=== PATIENT | male | born 1965 | race Caucasian/White ===

== ENCOUNTER 2016-07-09 17:12 | Emergency (ER) | payer OTHER ==
[~2016-07-09] VITALS: Ht 182.9 cm; Wt 172.4 kg
[~2016-07-09 17:12] MED LIST: ATIVAN0.5 MG PO; DICLOFENAC SODI75 M2 PO; FLOMAX(MONOGRA0.4 MG PO; FLOMAX0.4 M1 PO; MOTRIN 600 MG600 MG PO; PERCOCET 325 MG1 TAB PO; PERCOCET 5-3251 EACH PO; ZOFRAN ODT4 MG PO; ZOFRAN4 M2 PO
[2016-07-09 17:40] LABS: ABSOLUTE BASOPHIL COUNT 0 /CUMM (0.0-0.2); ABSOLUTE EOSINOPHIL COUNT 0.3 /CUMM (0.0-0.7); ABSOLUTE LYMPH COUNT 2.1 /CUMM (1.2-3.4); ABSOLUTE MONOCYTE COUNT 0.7 /CUMM (0.10-0.60); BASOPHIL % 0.5 % (0.0-2.0); GRANULOCYTE % 56.1 % (42.2-75.2); HEMATOCRIT 48.1 % (42-52); MEAN CORPUSCULAR HGB 30.8 PG (27.0-31.0); MEAN CORPUSCULAR HGB CONC 33.6 G/DL (33.0-37.0); MEAN CORPUSCULAR VOLUME 91.5 FL (80.0-94.0); MEAN PLATELET VOLUME 8.3 FL (7.4-10.4); PLATELET COUNT 197 /CUMM (130-400); RBC DISTRIBUTION WIDTH 13.9 % (11.5-14.5); RED BLOOD CELL CT 5.25 /CUMM (4.70-6.10); WHITE BLOOD CELL COUNT 7.1 /CUMM (4.8-10.8)
--- NOTE | 2016-07-09 17:47 | ED GI/GU/ABDOMINAL COMPLAINT ---
History of Present Illness General Chief Complaint: Male Genitourinary Problems Stated Complaint: RT KIDNEY PAIN Source: patient Exam Limitations: no limitations Vital Signs & Intake/Output Vital Signs & Intake/Output Vital Signs Date Time Temp Pulse Resp B/P Pulse O2 O2 Flow FiO2 Ox Delivery Rate 07/09 2006 79 22 150/79 98 Room Air 07/09 1717 98.1 82 18 142/90 98 Room Air Allergies Coded Allergies: hydromorphone (From DILAUDID) (Intermediate, BLOOD VESSELS IN EYE BLOW 10/26/15) Reconcile Medications Ibuprofen 800 MG TABLET 1 TAB PO TID pain Lorazepam 1 MG TABLET 1 TAB PO PRN ANXIETY (Reported) Oxycodone HCl/Acetaminophen (Percocet 5-325 MG Tablet) 5 MG-325 MG TABLET 1-2 TAB PO Q6P PRN pain Tamsulosin HCl (Flomax) 0.4 MG CAP.ER.24H 1 CAP PO DAILY kidney stone Triage Note: HISTORY OF KIDNEY STONES, 1 HOUR AGO STARTED WITH R SIDE FLANK PAIN, FEBRUARY HAD 8MM STONE REMOVED Triage Nurses Notes Reviewed? yes Onset: Abrupt Duration: hour(s):, constant, continues in ED Timing: recent history Activities at Onset: none No Modifying Factors: none HPI: 50-year-old male comes into emergency room with sudden onset right-sided flank pain that wraps around to his groin. Pain is moderate to severe. Continuous. History of kidney stone. Feels similar to previous kidney stone. Patient reports she was having some increased frequency with urination yesterday. Denies any other associated symptoms. (RADU CHENG) Past History Travel History Traveled to [place] past 21 day No Medical History Any Pertinent Medical History? see below for history Neurological: NONE EENT: EAR INFECTIONS Cardiovascular: NONE Respiratory: NONE Gastrointestinal: NONE Hepatic: NONE Renal: KIDNEY STONES Musculoskeletal: disk herniation Psychiatric: anxiety, depression Endocrine: NONE Blood Disorders: NONE Cancer(s): NONE ROAD CONTRACTOR/Reproductive: NONE Surgical History Surgical History: lithotripsy and ureteral stent Psychosocial History What is your primary language Slovenian Tobacco Use: Never used ETOH Use: denies use Illicit Drug Use: denies illicit drug use Family History Hx Contributory? No (RADU CHENG) Review of Systems Review of Systems Constitutional: Reports: no symptoms. EENTM: Reports: no symptoms. Respiratory: Reports: no symptoms. Cardiovascular: Reports: no symptoms. GI: Reports: no symptoms. Genitourinary: Reports: see HPI. Musculoskeletal: Reports: see HPI. Skin: Reports: no symptoms. Neurological/Psychological: Reports: no symptoms. Hematologic/Endocrine: Reports: no symptoms. Immunologic/Allergic: Reports: no symptoms. All Other Systems: Reviewed and Negative (RADU CHENG) Physical Exam Physical Exam General Appearance: well developed/nourished, no apparent distress, alert Head: atraumatic, normal appearance Eyes: Bilateral: normal appearance, EOMI. Ears, Nose, Throat, Mouth: hearing grossly normal, moist mucous membrane Neck: normal inspection Respiratory: normal breath sounds, no respiratory distress Cardiovascular: regular rate/rhythm Gastrointestinal: soft, tenderness (rlq) Back: normal inspection, normal range of motion Extremities: normal range of motion Neurologic/Psych: awake, alert, oriented x 3, normal gait, normal mood/affect Skin: intact, normal color Core Measures ACS in differential dx? No Severe Sepsis Present: No Septic Shock Present: No (RADU CHENG) Progress Differential Diagnosis: appendicitis, bowel obstruction, cholecystitis, diverticulitis, gastritis, hepatitis, hernia, pancreatitis, peptic ulcer, PUD/ GERD, pyelonephritis, SBO, ureterolithiasis, urinary retention, urethritis, UTI/ pyelo Plan of Care: Orders Procedure Date/time Status URINALYSIS 07/10 1727 Complete COMPREHENSIVE METABOLIC PANEL 07/10 1727 Complete CBC WITHOUT DIFFERENTIAL 07/10 1727 Complete Current Medications Sig/Yamilex Start time Last Medication Dose Stop Time Status Admin Hydromorphone HCl 1 MG ONCE ONE 07/09 1744 CAN (Dilaudid) 07/09 174 Laboratory Tests 07/09/161944: Urine Color YEL, Urine Clarity CLEAR, Urine pH 6.0, Ur Specific [place] 1.020, Urine Protein NEG, Urine Ketones NEG, Urine Nitrite NEG, Urine Bilirubin NEG, Urine Urobilinogen 0.2, Ur Leukocyte Esterase NEG, Ur Microscopic SEDIMENT EXAMINED, Urine RBC 3-5, Urine WBC RARE, Ur Epithelial Cells RARE, Urine Bacteria RARE H, Hyaline Casts RARE H, Urine Mucus FEW, Urine Hemoglobin SMALL H, Urine Glucose NEG 07/09/16 1730: Anion Gap 12, Estimated GFR 46 L, BUN/Creatinine Ratio 15.6, Glucose 94, Calcium 9.6, Total Bilirubin 0.6, AST 30, ALT 55, Alkaline Phosphatase 83, Total Protein 7.4, Albumin 4.2, Globulin 3.2, Albumin/Globulin Ratio 1.3, CBC w Diff NO MAN DIFF REQ, RBC 5.25, MCV 91.5, MCH 30.8, RDW 13.9, MPV 8.3, Gran % 56.1, Lymphocytes % 30.0, Monocytes % 9.4 H, Eosinophils % 4.0, Basophils % 0.5, Absolute Granulocytes 4.0, Absolute Lymphocytes 2.1, Absolute Monocytes 0.7 H, Absolute Eosinophils 0.3, Absolute Basophils 0, PUBS MCHC 33.6 Diagnostic Imaging: Viewed by Me: CT Scan. Discussed w/RAD: CT Scan. Radiology Impression: XAM TYPE: CAT - CT ABD & PELVIS W/O IV CONTRAS EXAMINATION : CT ABDOMEN AND PELVIS WITHOUT CONTRAST CLINICAL INFORMATION: Sharp right flank pain. Rule out kidney stone. COMPARISON: CT abdomen and pelvis of 10/26/2015, , 08/09/2006. TECHNIQUE: Multidetector volumetric imaging was performed from the superior aspect of the liver through the pubic symphysis. Sagittal and coronal reformatted images were obtained on the technologist's workstation. DLP: 1237.10 mGy-cm. FINDINGS: LUNG BASES: A 3 mm subpleural nodule at the left lung base posteriorly (series 3 image 52) is stable since previous CT of 2006. The lung bases are otherwise clear. LIVER, GALLBLADDER, AND BILIARY TREE: The liver is normal in size and shape. There is patchy low-attenuation in the liver parenchyma suggesting underlying patchy hepatic steatosis with focal areas of sparing. No focal liver lesion is noted within the limits of noncontrast study. No biliary ductal dilatation. The gallbladder is moderately contracted, however there is no evidence of radiopaque stones, wall thickening or obvious pericholecystic inflammatory changes. PANCREAS: Unremarkable. SPLEEN: Unremarkable. ADRENAL GLANDS: Unremarkable. KIDNEYS AND URETERS: The kidneys are normal in size, shape and attenuation. There are right renal peripelvic cysts, appears somewhat smaller compared to previous studies. There is a 0.4 cm calculus at the right ureteral pelvic junction with suspected mild associated hydronephrosis. A 0.7 cm calculus is noted in the mid right kidney and a 0.7 cm calculus is noted in the lower pole of the right kidney. Minimal bilateral perinephric stranding is chronic and within physiologic limits. No radiopaque left urinary tract calculi. The ureters are normal in caliber. BLADDER: Underdistended, however, unremarkable without evidence of radiopaque calculi, wall thickening or soft tissue mass. GASTROINTESTINAL TRACT: The stomach and small bowel are not dilated. Fatty replacement is noted in the few of the small as well as large bowel loops, a stable chronic finding, correlate with history of prior inflammatory or infectious bowel disease. No evidence of colonic wall thickening or pericolonic fat stranding. The appendix is normal. PERITONEAL CAVITY: No evidence of free intraperitoneal air or fluid. No inflammatory changes or nodularity is seen in the omentum and mesentery. ABDOMINAL WALL: There is a small umbilical hernia containing fat. LYMPH NODES: No pathologically enlarged lymph nodes. VASCULAR: Unremarkable. PELVIC VISCERA: Unremarkable. OSSEOUS STRUCTURES: No acute or suspicious osseous abnormality. Minimal multilevel anterior endplate hypertrophic spurring is noted in the lumbar spine and visualized thoracic spine. IMPRESSION: 1. A 0.4 cm calculus in the right ureteropelvic junction with mild right hydronephrosis. Associated right renal peripelvic cysts. Two additional 0.7 cm calculi in the mid to lower right kidney. No evidence of radiopaque left urinary tract calculi or bladder calculi. 2. Suspected patchy hepatic steatosis. DICTATED BY: MAGALIE DEVLIN,ANAL DATE/TIME DICTATED:07/09/161799 INTERACTIVE WEB DEVELOPER:NAS DATE/TIME TRANSCRIBED:1799 CONFIDENTIAL, DO NOT COPY WITHOUT APPROPRIATE AUTHORIZATION. Initial ED EKG: none Comments: 07/09/2016 9:20:12 PM Patient's pain is under control. Patient discharged with follow-up for urology. Return if any other concerns worsening symptoms. Patient understands and agrees plan of care. Patient is not driving home. Reevaluated multiple times. Patient's symptoms continued to improve. (RADU CHENG) Departure Departure Disposition: HOME OR SELF CARE Condition: Stable Clinical Impression Primary Impression: Kidney stone Referrals: CHARLEY DEVLIN,DEMETRICE BARTLETT MD,JEANNINE Duran III (PCP/Family) Additional Instructions: TAKE pERCOCET fLOMAX AND IBUPROFEN PRESCRIBED. fOLLOW-UP WITH YOUR UROLOGIST. rETURN IF ANY CONCERNS WORSENING SYMPTOMS. Follow-up with your primary care physician this week. Return to the emergency room at any time sooner if you have worsening of your symptoms or any other concerns. Please note that there might be incidental findings in your evaluation that are unrelated to the current emergency department visit. Please notify your primary care doctor about this emergency department visit in order to obtain and review all of the testing performed so that these incidental findings can be monitored as needed. If you were prescribed a narcotic use caution as this medication is highly addictive and will make you drowsy use for breakthrough pain only. No driving, drinking alcohol or operating machinary when taking. If you had an x-ray performed, please understand that some fractures may not be seen on the initial set of x-rays. If your symptoms persist you might need a repeat set of x-rays to check for such a fracture. If you had a laceration evaluated, please understand that foreign bodies such as glass or wood may not be visible to the naked eye or on plain x-rays. If the wound becomes red, swollen, increasingly more painful or if there is any drainage from the wound, please have it reevaluated by a physician for the possibility of a retained foreign body. Departure Forms: Customer Survey General Discharge Information Prescriptions: Current Visit Scripts Oxycodone HCl/Acetaminophen (Percocet 5-325 MG Tablet) 1-2 TAB PO Q6P PRN pain #15 TAB Tamsulosin HCl (Flomax) 1 CAP PO DAILY #7 CAP Ibuprofen 1 TAB PO TID #30 TAB (RADU CHENG) PA/CHILD PSYCHOLOGIST Co-Sign Statement Statement: ED Attending supervision documentation- [] I saw and evaluated the patient. I have also reviewed all the pertinent lab results and diagnostic results. I agree with the findings and the plan of care as documented in the PA's/CHILD PSYCHOLOGIST's documentation. [X] I have reviewed the ED Record and agree with the PA's/CHILD PSYCHOLOGIST's documentation. [] Additions or exceptions (if any) to the PAs/CHILD PSYCHOLOGIST's note and plan are summarized below: [] (SARA DEVLIN,COOPER Damon)
[2016-07-09] MEDS ORDERED: LORAZEPAM1 M1 PO (18:04)
--- NOTE | 2016-07-09 18:29 | CT SCAN REPORT ---
EXAMINATION: CT ABDOMEN AND PELVIS WITHOUT CONTRAST CLINICAL INFORMATION: Sharp right flank pain. Rule out kidney stone. COMPARISON: CT abdomen and pelvis of 10/26/2015, 08/25/2014, 08/09/2006. TECHNIQUE: Multidetector volumetric imaging was performed from the superior aspect of the liver through the pubic symphysis. Sagittal and coronal reformatted images were obtained on the technologist's workstation. DLP: 1237.10 mGy-cm. FINDINGS: LUNG BASES: A 3 mm subpleural nodule at the left lung base posteriorly (series 3 image 52) is stable since previous CT of 2006. The lung bases are otherwise clear. LIVER, GALLBLADDER, AND BILIARY TREE: The liver is normal in size and shape. There is patchy low-attenuation in the liver parenchyma suggesting underlying patchy hepatic steatosis with focal areas of sparing. No focal liver lesion is noted within the limits of noncontrast study. No biliary ductal dilatation. The gallbladder is moderately contracted, however there is no evidence of radiopaque stones, wall thickening or obvious pericholecystic inflammatory changes. PANCREAS: Unremarkable. SPLEEN: Unremarkable. ADRENAL GLANDS: Unremarkable. KIDNEYS AND URETERS: The kidneys are normal in size, shape and attenuation. There are right renal peripelvic cysts, appears somewhat smaller compared to previous studies. There is a 0.4 cm calculus at the right ureteral pelvic junction with suspected mild associated hydronephrosis. A 0.7 cm calculus is noted in the mid right kidney and a 0.7 cm calculus is noted in the lower pole of the right kidney. Minimal bilateral perinephric stranding is chronic and within physiologic limits. No radiopaque left urinary tract calculi. The ureters are normal in caliber. BLADDER: Underdistended, however, unremarkable without evidence of radiopaque calculi, wall thickening or soft tissue mass. GASTROINTESTINAL TRACT: The stomach and small bowel are not dilated. Fatty replacement is noted in the few of the small as well as large bowel loops, a stable chronic finding, correlate with history of prior inflammatory or infectious bowel disease. No evidence of colonic wall thickening or pericolonic fat stranding. The appendix is normal. PERITONEAL CAVITY: No evidence of free intraperitoneal air or fluid. No inflammatory changes or nodularity is seen in the omentum and mesentery. ABDOMINAL WALL: There is a small umbilical hernia containing fat. LYMPH NODES: No pathologically enlarged lymph nodes. VASCULAR: Unremarkable. PELVIC VISCERA: Unremarkable. OSSEOUS STRUCTURES: No acute or suspicious osseous abnormality. Minimal multilevel anterior endplate hypertrophic spurring is noted in the lumbar spine and visualized thoracic spine. IMPRESSION: 1. A 0.4 cm calculus in the right ureteropelvic junction with mild right hydronephrosis. Associated right renal peripelvic cysts. Two additional 0.7 cm calculi in the mid to lower right kidney. No evidence of radiopaque left urinary tract calculi or bladder calculi. 2. Suspected patchy hepatic steatosis.
[2016-07-09 20:07] VITALS: BP 150/79
[2016-07-09] MEDS ORDERED: PERCOCET 5-3251 EACH PO (20:52)
[2016-07-09] MEDS ORDERED: FLOMAX0.4 M1 PO (20:52)
[2016-07-09] MEDS ORDERED: IBUPROFEN800 M1 PO (20:52)
== END 2016-07-09 21:03 ==
LOC: ERH 17:12
PROVIDERS: Physician Assistant Medical
DX: N20.0 Calculus of kidney (principal)
CPT/HCPCS: 74176; 81001; 96361; 96374; 96375; 96376; J1885